=== PATIENT | female | born 1960 | race African-American/Black ===

== ENCOUNTER 2019-03-27 11:00 | Emergency (ER) | payer OTHER, BC ==
[2019-03-27 11:10] VITALS: BP 148/79; PULSE 100; TEMP 98.3; BMI 34.0
--- NOTE | 2019-03-27 12:26 | PDOC ---
History of Present Illness - General Chief Complaint: Sore Throat Stated Complaint: HEADACHE Time Seen by Provider: 03/27/19 12:02 - History of Present Illness Initial Comments: 03/27/19 12:23 58 y/o F w/ multiple CM. IDDM, HTN, Hypothyroid, Chronic pain presents for evaluatoin of BERKOWITZ x8 days. She states she had a fever the first day but that has resolved after the first day. She does not get chronic headaches and this is away from her baseline. Her BERKOWITZ was not relieved with PO Tylenol. 03/27/19 12:25 She does have associated photophobia Past History - Past Medical History Allergies/Adverse Reactions: Allergies Allergy/AdvReac Type Severity Reaction Status Date / Time cefoxitin sodium Allergy Intermediate Swelling Verified 03/27/19 11:10 [From Mefoxin] Home Medications: Ambulatory Orders Metoprolol Succinate [Toprol XL -] 25 mg PO DAILY 05/14/13 Simvastatin [Zocor -] 40 mg PO HS 05/14/13 Alprazolam [Xanax] 1 mg PO DAILY PRN 06/11/14 Levothyroxine [Synthroid -] 25 mcg PO DAILY 06/11/14 Acetaminophen [Tylenol .Extra-Strength -] 500 mg PO Q6H PRN 12/31/14 Aspirin [ASA -] 81 mg PO DAILY 12/31/14 Fentanyl 1 each TD Q72H 02/01/18 Insulin Glargine,Hum.rec.anlog [T[place]resh Solostar] 20 unit SQ AM 02/01/18 Insulin Lispro [Humalog] 5 unit SQ ACDIN 02/01/18 Pantoprazole Sodium [Protonix -] 40 mg PO BID #60 tablet.ec 02/02/18 Anemia: No Asthma: No Cardiac Disorders: Yes (MITRAL VALVE PROLAPSE, PALPITATIONS) CVA: No COPD: No CHF: No DVT: No Dementia: No Diabetes: Yes GI Disorders: No Disorders: Yes (KIDNEY DISEASE) HTN: Yes Hypercholesterolemia: No Liver Disease: No Seizures: No Thyroid Disease: Yes Other medical history: BULDGING DISC - Surgical History Abdominal Surgery: Yes (HERNIA REPAIR) Appendectomy: No Cardiac Surgery: No Cholecystectomy: No Lung Surgery: No Neurologic Surgery: No Orthopedic Surgery: Yes (BACK SURGERY, THYROID) - Immunization History Immunization Up to Date: Yes - Suicide/Smoking/Psychosocial Hx Smoking Status: Yes Smoking History: Never smoked Have you smoked in the past 12 months: No Number of Cigarettes Smoked Daily: 0 'Breaking Loose' booklet given: 06/11/14 Hx Alcohol Use: No Drug/Substance Use Hx: No Substance Use Type: None Review of Systems - Review of Systems Constitutional: Yes: Fever Neurological: Yes: Headache *Physical Exam - Vital Signs Last Vital Signs Temp Pulse Resp BP Pulse Ox 98.3 F 100 H 16 148/79 98 03/27/19 11:07 03/27/19 11:07 03/27/19 11:07 03/27/19 11:07 03/27/19 11:07 ED Treatment Course - RADIOLOGY Radiology Studies Ordered: Category Date Time Status HEAD CT WITHOUT CONTRAST [CT] Stat CT Scan 03/27/19 12:23 Ordered Medical Decision Making - Medical Decision Making 03/27/19 12:[address] and treat headache. 03/27/19 15:35 BERKOWITZ relieved after IV meds. Discussed neurology f/u with pt as well as CT results. *DC/Admit/Observation/Transfer Diagnosis at time of Disposition: Headache - Discharge Dispostion Disposition: HOME Condition at time of disposition: Improved Decision to Admit order: No - Referrals Referrals: Judith Greene MD [Primary Care Provider] - Carlos Nath MD [Staff Physician] - - Patient Instructions Additional Instructions: You make Tylenol for headache as directed. Return to the Emergency Room for worsening or return of symptoms. Please, without fail, follow up with neurology for further evaluation and treatment of your headache. - Post Discharge Activity
[2019-03-27] MEDS ORDERED: METOCLOPRAMIDE HCL INJECTION 10 MG/2 ML VIAL IVPUSH ONE (14:19)
[2019-03-27] MEDS ORDERED: SODIUM CHLORIDE 0.9% 500 ML INFUS.BAG IV ONE (14:19)
[2019-03-27] MEDS ORDERED: ACETAMINOPHEN 1000 MG/100 ML VIAL (NON FORMULARY) IVPB ONE (14:20)
[2019-03-27] MEDS ORDERED: ACETAMINOPHEN INJECTION 100 ML IVPB ONE (14:56)
[2019-03-27] MEDS ORDERED: METOCLOPRAMIDE HCL INJECTION 10 MG/2 ML VIAL ONE (14:56)
== END 2019-03-27 16:12 | disposition home or self-care (01) ==
LOC: JERFT 11:00
PROC: 3E033NZ Introduction of Analgesics, Hypnotics, Sedatives into Peripheral Vein, Percutaneous Approach (ICD-10-PCS; principal; 2019-03-27)
PROC: 3E033GC Introduction of Other Therapeutic Substance into Peripheral Vein, Percutaneous Approach (ICD-10-PCS; 2019-03-27)
PROC: 3E033GC Introduction of Other Therapeutic Substance into Peripheral Vein, Percutaneous Approach (ICD-10-PCS; 2019-03-27)
DX: R51 Headache (principal); I10 Essential (primary) hypertension; E03.9 Hypothyroidism, unspecified; E11.9 Type 2 diabetes mellitus without complications; Z79.4 Long term (current) use of insulin; G89.29 Other chronic pain
CPT/HCPCS: 70450-TC; 96374; 96375; 99281-25; J0131

== ENCOUNTER 2019-09-10 12:23 | Day surgery (SDC) | payer OTHER, BC ==
[2019-09-07 17:13] VITALS: BMI 36.1
[2019-09-10 13:02] VITALS: TEMP 98
[2019-09-10 16:48] VITALS: BP 129/76; PULSE 77
== END 2019-09-10 17:03 | disposition home or self-care (01) ==
LOC: JASU-ENDO 12:23
PROVIDERS: ATTEND Internal Medicine Gastroenterology
PROC: 0DJD8ZZ Inspection of Lower Intestinal Tract, Via Natural or Artificial Opening Endoscopic (ICD-10-PCS; principal; 2019-09-10 13:15)
DX: Z12.11 Encounter for screening for malignant neoplasm of colon (principal); K64.8 Other hemorrhoids

== ENCOUNTER 2021-04-10 04:20 | Day surgery (SDC) | payer OTHER, BC ==
[2021-03-19 13:35] VITALS: BMI 32.5
[2021-04-10] MEDS ORDERED: BUPIVACAINE HCL/PF 0.75% 10 ML VIAL ONE (07:31)
[2021-04-10] MEDS ORDERED: LIDOCAINE HCL/PF 1% SDV 5ML VIAL ONE (07:37)
[2021-04-10] MEDS ORDERED: BUPIVACAINE HCL/PF 0.5% (5MG/ML) 10 ML VIAL ONE (07:47)
[2021-04-10] MEDS ORDERED: TRIAMCINOLONE ACET 40MG/1ML VIAL ONE (07:49)
[2021-04-10] MEDS ORDERED: SODIUM CHLORIDE 0.9% P/F 10 ML VIAL IJ ONE (07:54)
[2021-04-10] MEDS ORDERED: LIDOCAINE 1% P/F 10 MG/ML VIAL PNB ONE ×2 (11:30)
[2021-04-10] MEDS ORDERED: TRIAMCINOLONE ACET 40MG/1ML VIAL IM ONE (11:30)
[2021-04-10] MEDS ORDERED: BUPIVACAINE HCL/PF 0.5% (5 MG/ML) 30 ML VIAL IJ ONE (11:31)
[2021-04-10] MEDS ORDERED: BUPIVACAINE HCL/PF 0.25% (2.5MG/ML) 10 ML VIAL IJ ONE (11:31)
[2021-04-10 13:56] VITALS: BP 130/80; PULSE 80; TEMP 98
== END 2021-04-10 12:20 | disposition home or self-care (01) ==
LOC: JASU-SURG 04:20
PROVIDERS: ATTEND Pain Medicine Pain Medicine
PROC: 3E0U3BZ Introduction of Anesthetic Agent into Joints, Percutaneous Approach (ICD-10-PCS; 2021-04-10)
PROC: 3E0U33Z Introduction of Anti-inflammatory into Joints, Percutaneous Approach (ICD-10-PCS; principal; 2021-04-10 10:30)
DX: M53.3 Sacrococcygeal disorders, not elsewhere classified (principal)
CPT/HCPCS: 76000-TC-FY

== ENCOUNTER 2021-10-13 04:26 | Day surgery (SDC) | payer OTHER, BC ==
[2021-10-09 16:14] VITALS: BMI 36.9
[2021-10-13] MEDS ORDERED: LIDOCAINE HCL/PF 1% SDV 5ML VIAL ONE ×2 (07:11→07:32)
[2021-10-13] MEDS ORDERED: LIDOCAINE HCL 1% PRESERVATIVE FREE - 30ML VIAL IJ ONE (08:38)
[2021-10-13 12:01] VITALS: TEMP 98.8
[2021-10-13 12:38] VITALS: BP 145/65; PULSE 65
== END 2021-10-13 12:25 | disposition home or self-care (01) ==
LOC: JASUSAT 04:26
PROVIDERS: ATTEND Pain Medicine Pain Medicine
PROC: 01HY3MZ Insertion of Neurostimulator Lead into Peripheral Nerve, Percutaneous Approach (ICD-10-PCS; principal; 2021-10-13 08:00)
DX: G89.4 Chronic pain syndrome (principal); M79.641 Pain in right hand; I12.9 Hypertensive chronic kidney disease with stage 1 through stage 4 chronic kidney disease, or unspecified chronic kidney disease; E11.22 Type 2 diabetes mellitus with diabetic chronic kidney disease; N18.30 Chronic kidney disease, stage 3 unspecified
CPT/HCPCS: 64555; C1897; 82962

== ENCOUNTER 2021-12-18 04:21 | Day surgery (SDC) | payer OTHER, BC ==
[2021-12-04 11:00] VITALS: BMI 36.9
[2021-12-18] MEDS ORDERED: BUPIVACAINE HCL/PF 0.75% 10 ML VIAL ONE (07:30)
[2021-12-18] MEDS ORDERED: LIDOCAINE HCL 1%, 10 MG/ML (20ML VIAL) ONE (07:30)
[2021-12-18] MEDS ORDERED: LIDOCAINE HCL/PF 1% SDV 5ML VIAL ONE (07:34)
[2021-12-18 07:36] VITALS: BP 125/70; PULSE 94; TEMP 97.1
== END 2021-12-18 09:30 | disposition home or self-care (01) ==
LOC: JASU-SURG 04:21
PROVIDERS: ATTEND Pain Medicine Pain Medicine
DX: Z53.8 Procedure and treatment not carried out for other reasons (principal)

== ENCOUNTER 2021-12-18 09:31 | Emergency (ER) | payer OTHER, BC ==
[2021-12-18 09:45] VITALS: TEMP 98.9; BMI 35.4
[2021-12-18] MEDS ORDERED: ACETAMINOPHEN 500 MG TABLET (FP) PO ONE (10:28)
[2021-12-18] MEDS ORDERED: ACETAMINOPHEN 325 MG TABLET (FP) ONE (10:31)
[2021-12-18 11:09] LABS: BASO % 0.8 % (0-2.0); EOS % 6.9 % (0-4.5); HEMATOCRIT 36.8 % (32.4-45.2); LYMPH % 32.3 % (8-40); MCH 29.4 pg (25.7-33.7); MCHC 32.5 g/dl (32.0-36.0); MEAN CELL VOLUME 90.6 fl (80-96); MEAN PLT VOLUME 7.8 fl (7.5-11.1); MONO % 10.4 % (3.8-10.2); NEUT % 49.6 % (42.8-82.8); PLATELET COUNT 293 10^3/uL (134-434); RBC 4.06 M/mm3 (3.60-5.2); RDW 14.9 % (11.6-15.6); WHITE BLOOD COUNT 4.8 K/mm3 (4.0-10.0)
[2021-12-18 11:46] LABS: ALBUMIN 3.4 g/dl (3.4-5.0); BLOOD UREA NITROGEN 18.9 mg/dL (7-18); CALCIUM 8.1 mg/dL (8.5-10.1)
[2021-12-18 11:48] LABS: CREATININE 1.9 mg/dL (0.55-1.3)
[2021-12-18 11:51] LABS: BILIRUBIN,TOTAL 0.3 mg/dL (0.2-1); TOT PROT 6.8 g/dl (6.4-8.2)
[2021-12-18] MEDS ORDERED: CLINDAMYCIN 600MG PREMIX IVPB 600 MG/50 ML BAG IVPB ONE ×2 (12:14→12:42)
[2021-12-18 13:31] VITALS: BP 136/78; PULSE 74
[2021-12-18] MEDS ORDERED: ALBUTEROL SO4 2.5/IPRATROPIUM 0.5 INH SOL 3 ML VIAL.NEB. NEB ONE (15:27)
[2021-12-18] MEDS ORDERED: ALBUTEROL SO4 2.5/IPRATROPIUM 0.5 INH SOL 3 ML VIAL.NEB. NEB SCH (15:30)
== END 2021-12-18 13:31 | disposition home or self-care (01) ==
LOC: JER 09:31
PROC: 3E0F7GC Introduction of Other Therapeutic Substance into Respiratory Tract, Via Natural or Artificial Opening (ICD-10-PCS; principal; 2021-12-18)
PROC: 3E03329 Introduction of Other Anti-infective into Peripheral Vein, Percutaneous Approach (ICD-10-PCS; 2021-12-18)
DX: L03.818 Cellulitis of other sites (principal); R05.1 Acute cough
CPT/HCPCS: 36415; 71046-TC-FY; 80053; 85025; 99284-25

== ENCOUNTER 2022-01-12 04:29 | Day surgery (SDC) | payer OTHER, BC ==
[2022-01-07 14:07] VITALS: BMI 36.9
[2022-01-12] MEDS ORDERED: LIDOCAINE 1% P/F 10 MG/ML VIAL INF ONE ×2 (08:32)
[2022-01-12 09:17] VITALS: TEMP 97.5
[2022-01-12 09:57] VITALS: BP 127/75; PULSE 77
== END 2022-01-12 09:55 | disposition home or self-care (01) ==
LOC: JASU-SURG 04:29
PROVIDERS: ATTEND Pain Medicine Pain Medicine
PROC: 01HY3MZ Insertion of Neurostimulator Lead into Peripheral Nerve, Percutaneous Approach (ICD-10-PCS; principal; 2022-01-12 08:00)
DX: G89.4 Chronic pain syndrome (principal); M79.641 Pain in right hand
CPT/HCPCS: 64555; C1778